=== PATIENT | female | born 1975 | race Caucasian/White ===

== ENCOUNTER 2016-06-25 05:29 | Day surgery (SDC) | payer OTHER ==
[~2016-06-25] VITALS: Ht 170.2 cm; Wt 71.3 kg
[2016-06-25] VITALS (14 sets, daily range): BP systolic 101–123; BP diastolic 62–87; PULSE 50–107; RESP 9–20; O2SAT 91–100
[2016-06-25] MEDS: Lactated Ringer's 1,000 ML IV SCH ×2 (05:09→07:27)
[~2016-06-25 05:29] MED LIST: CETI10CA PO; HYDR-4003 PO; MEDR150D9 IM
[2016-06-25] MEDS ORDERED: fentaNYL-PF 50 mCg/mL 2 mL Inj ONE (05:30)
[2016-06-25] MEDS ORDERED: Dexamethasone 4 mg/mL Inj ONE (05:30)
[2016-06-25] MEDS ORDERED: Glycopyrrolate 0.2 MG/ML 1mL Inj ONE (05:30)
[2016-06-25] MEDS ORDERED: Succinylcholine Chloride 20 mg/mL 5 mL Inj ONE (05:30)
[2016-06-25] MEDS ORDERED: Propofol 10,000 mCg/mL 20 mL Inj ONE (05:30)
[2016-06-25] MEDS ORDERED: Ondansetron 2 mg/mL 2 mL Inj ONE (05:30)
[2016-06-25] MEDS ORDERED: EPHEDrine/NS 5 mg/mL 5 mL Syringe ONE (05:30)
[2016-06-25] MEDS ORDERED: Lidocaine PF 1% 30 mL Inj ONE (05:30)
[2016-06-25] MEDS ORDERED: Rocuronium 10 mg/mL 5 mL Inj ONE (05:30)
[2016-06-25] MEDS ORDERED: Neostigmine 1 mg/mL 10 mL Inj ONE (05:30)
[2016-06-25] MEDS ORDERED: CeFAZolin Inj 2 GM in IV Premix 1 EACH IV ONE (06:00)
[2016-06-25 07:13] LABS: Mean Corpuscular Hemoglobin 31.9 pg (27.0-35.0); Mean Corpuscular Volume 92.3 fL (81-100)
[2016-06-25] MEDS ORDERED: Bupivacaine-MPF 0.5% W/EPI 30 mL Inj INFILTRATE ONE (07:30)
[2016-06-25] MEDS ORDERED: Lactated Ringer's 500 ML IV PRN (07:56)
[2016-06-25] MEDS ORDERED: Lactated Ringer's 1,000 ML IV SCH (07:56)
--- NOTE | 2016-06-25 07:58 | PCM.HPANE ---
Patient Data Surgeon Admitting Provider: Attending Provider:Quincy Wong MD Primary Care Physician:Rafaela Vines Other Provider:Vivian Rangel Anesthesia Reason for Visit Leiomyoma Of Uterus Ht/WT & BMI Height (Feet): 5 Height (Inches): 7.00 Weight (Kilograms): 71.3 Body Mass Index 24.00 Allergies Coded Allergies: No Known Allergies (Unverified , 06/22/16) Past Anesthesia History Anesthesia History: Denies:: Anesthesia Reactions, Malignant Hyperthermia Diabetes History Hx Diabetes?: No MRSA MRSA: No Medications Home Meds Incl Beta Gabo: No Reported Medications Cetirizine HCl (Zyrtec)10 Mg [id number] Mg PO HS #30 CAPSULE Ref 0 06/22/16 Hydrocodone-Acetaminophen 5-325 mg 1 Each Tablet1 Tablet PO Q6H PRN For Pain Ref 0 06/22/16 Medroxyprogesterone Acetate (Depo-Provera)150 Mg/1 Ml [id number] Mg IM q 3 months 06/22/16 Last Time Dose Received Pt. rarely takes hydrocodone. She also takes lexapro and rarely xanax History History of ENT Problems?: Yes HEENT History: Positive for:: Sinus Problem (SEASONAL ALLERGIES) Denture Type: None Teeth Condition: Within Normal Limits Other HEENT Pertinent History: S/P HYPOPHARYNGEAL EXAM R/T STREP THROAT/ PERITONSILLAR ABCESS 2016 Hx of Heart Problems?: No Cardiovascular History: Denies:: Heart Murmur Hypertension Hx of Respiratory Problem?: Yes Respiratory History: Positive for:: Asthma Denies:: Use of C-PAP Machine (SNORES) Other History/Comment Tobacco use; 1/2 pack ppd Asthma well controlled Hx Neurologic Problems?: Yes Hx of GI Problems?: No Hx of Problems?: No Female Hx: Denies:: Currently Endometriosis Pelvic Inflammatory (+HPV) Problems with Breasts? Skin History: Denies:: History Skin Disorders? Pressure Ulcers Hx Musculoskeletal Problems?: No Hx of Psycho/Social Problems?: Yes Psycho Social History: Positive for:: Hx Depression Denies:: Anxiety Bipolar Disorder Suicide Attempt Hx Surgeries?: Yes (C/S,LEEP,LT OOPHORECTOMY,BTL,HYPOPHARYNGEAL EXAM) Hx Any Other Health Problems?: Yes Other History: Positive for:: Hospitalization (TAJ-TONSILLAR ABCESS) Denies:: Cancer Endocrine Disease Thyroid Disease History Blood Transfusions: Denies:: Blood Transfusions Hx Diabetes: No Hx Alcohol Use: YesHx Substance Use: No Smoking Status: Current Every Day Smoker Have You Smoked inLast 12 mo: YesApprox How Many Cigarettes/day: 1/ PPD X 16YRS Stop/Bang S-Snoring: Do You Snore Loudly: Yes T-Tired: feel tired, fatigued: Yes O-Obsered: Observed not breath: No P-Blood Pressure: treated: No B- Body Mass Index > 35 kg/m2: No A- Age over 50: No N- Neck Large Circumference: No G- Gender Male: No ARVIN Total Score: 2 Risk Assessment Category Category 1A: Patient has history of documented sleep apnea, and HAS NOT received any narcotic, sedative or anesthesia administration during this stay. Category 1B: Patient has history of documented sleep apnea, and HAS received any narcotic , sedative or anesthesia administration during this stay Category 2: Patient has SUSPECTED Obstructive Sleep Apnea, and HAS received any narcotic , sedative or anesthesia administration during this stay. Category 3: Patient has SUSPECTED Obstructive Sleep Apnea and HAS NOT received narcotic, sedative or anesthesia administration during this stay. Category 4: Outpatient in Procedural Areas with known sleep apnea or who screen positive for High Risk via the STOP/BANG questionnaire. Exam Exam Vital Signs Vital Signs Date Time Temp Pulse Resp B/P Pulse Ox O2 Delivery O2 Flow Rate FiO2 06/25/16 06:00 36.5 107 16 113/87 97 Room Air General Appearance: Alert, Oriented X3 HEENT/AIRWAY: MP 2, Neck Movement (FROM) Lungs: Clear to Auscultation, Clear to Percussion Heart: Exam Unremarkable, Regular Rate/Rhythm Meds/Labs/Diagnostics Admission Meds Current Medications Lactated Ringer's (Lr) 1,000 ml @ 120 mls/hr Q8H20M IV Last administered on t 05:09; Start 06/25/16 at 05:00; Stop 06/25/16 at 13:19 Plan Impression Patient chart reviewed, patient interviewed and anesthestic plan with risks, benefits, and alternatives discussed, and informed consent obtained. ASA Physical Status: ASA2 Mod Systemic Disease Anesthetic Plan: GA Bene/Risks/Altern/Consents: Yes HP Complete Prior to Induction: Yes Danial Garza MD June 25, 2016 07:10
[2016-06-25] MEDS ORDERED: EPHEDrine Sulfate 50 mg/mL Inj IVPUSH PRN (08:00)
[2016-06-25] MEDS ORDERED: Ondansetron 2 mg/mL 2 mL Inj IVPUSH PRN ×2 (08:00→10:15)
[2016-06-25] MEDS ORDERED: Labetalol 5 mg/mL 4 mL Inj IV PRN (08:00)
[2016-06-25] MEDS ORDERED: Phenylephrine 10,000 mCg/mL Inj IVPUSH PRN (08:00)
[2016-06-25] MEDS ORDERED: Atropine 0.4 mg/mL Inj IVPUSH PRN (08:00)
[2016-06-25] MEDS ORDERED: MetoCLOpramide 5 mg/mL 2 mL Inj IVPUSH PRN ×2 (08:00→10:15)
[2016-06-25] MEDS ORDERED: oxyCODONE-Acetamin 5-325 mg Tablet PO PRN (10:15)
--- NOTE | 2016-06-25 10:19 | PCM.DIMED ---
Discharge Instructions Date of Service June 25, 2016 Dates of Hospitalization Diet No restrictions Activity No restrictions Call your provider Fever or Chills, Shortness of breath, Bleeding, Chest pain, Vomitting, Excessive diarrhea, Weakness (unilateral) Patient Instructions Follow-up with PCP in: 2 weeks Quincy Wong MD June 25, 2016 10:19
[2016-06-25] MEDS: fentaNYL-PF 50 mCg/mL 2 mL Inj IVPUSH PRN ×3 (10:27→10:50)
[2016-06-25] MEDS: HYDROmorphone 1 mg/mL Inj IVPUSH PRN ×2 (11:08→11:19)
--- NOTE | 2016-06-25 12:10 | PCM.ANEP1 ---
Post Anesthesia PACU Phase 1 Assessment Vital Signs Vital Signs Date Time Temp Pulse Resp B/P Pulse Ox O2 Delivery O2 Flow Rate FiO2 06/25/16 11:40 36.4 50 10 102/63 96 Nasal Cannula 2 06/25/16 11:35 75 12 101/67 95 Nasal Cannula 2 06/25/16 11:25 77 10 101/65 91 Room Air 06/25/16 11:15 71 10 107/64 94 Room Air 06/25/16 11:00 70 9 108/69 99 Room Air 06/25/16 10:55 36.6 83 16 118/65 98 Nasal Cannula 2 06/25/16 10:45 68 20 109/70 97 Nasal Cannula 2 06/25/16 10:35 62 17 116/77 100 Nasal Cannula 4 06/25/16 10:30 64 13 109/69 100 Nasal Cannula 4 06/25/16 10:25 77 14 123/74 95 Nasal Cannula 4 06/25/16 10:15 91 15 102/70 96 Room Air 06/25/16 10:12 36.1 91 12 112/62 93 Room Air 06/25/16 06:00 36.5 107 16 113/87 97 Room Air Anesthetic Administered: GA Level of Alertness: Awake, talking BRONSON's with Equal Strength: Yes Pain: No Nausea or Vomiting: No CV Function and Hydration: Yes (normal) Airway Device: None Oxygen Delivery: Simple Mask Lungs: Clear to Auscultation, Clear to Percussion PACU Phase 2 Assessment Complications: No Follow up Care: No Patient Instructions Provided: Yes Danial Garza MD June 25, 2016 12:10
--- NOTE | 2016-06-26 07:03 | OP ---
[address] [address] OPERATIVE REPORT PATIENT: [address]ORETTA [address] : 1975 MR#: [id number] ADMIT: 06/25/2016 JOB ID: [id number] DATE OF SURGERY: 06/25/2016 PROCEDURE: Total laparoscopic hysterectomy with right salpingectomy. PREOPERATIVE DIAGNOSIS(ES): 1. Chronic pelvic pain. 2. Abnormal uterine bleeding. 3. Dysmenorrhea. POSTOPERATIVE DIAGNOSIS(ES): 1. Chronic pelvic pain. 2. Abnormal uterine bleeding. 3. Dysmenorrhea. SURGEON: Quincy Wong MD FRONT DESK TEAM MEMBER: Stephanie Almodovar MD. The assistance of Dr. Almodovar was necessary in this case to provide proper exposure, help with retraction, and manipulation of the tissue. ANESTHESIA: General. ESTIMATED BLOOD LOSS: 20 mL. ESTIMATED URINE OUTPUT: 150 mL. FLUIDS: 900 mL of lactated Ringer. COMPLICATIONS: None. FINDINGS: Normal appearance of the external genitalia, vagina, and cervix. The uterus is boggy, irregular, normal in size with pedunculated fibroid in the upper posterior aspect of the uterus about 2.5 to 3 cm in size. Absent left adnexa due to prior left salpingo-oophorectomy, normal appearance of the right ovary and fallopian tube. DESCRIPTION OF PROCEDURE: The patient was brought to the operating room where she underwent general anesthesia without difficulty. The patient received preoperative antibiotics. She was placed in the deep dorsal lithotomy position using Carmelo stirrups. She was prepped and draped in usual surgical fashion. Time-out was performed verifying correct patient and correct procedure. Pelvic examination was performed. The Schulz catheter was placed. The same speculum was placed into the vagina. The cervix was visualized and grasped with a tenaculum. The Sonora Leatherare uterine manipulator was placed. Attention was then directed to the patient's abdomen where a Veress needle was introduced through the umbilicus and CO2 gas was insufflated with appropriate pneumoperitoneum achieved. Local anesthetic, Marcaine was used. One 0.5 cm subumbilical incision was made with a scalpel. A 5 mm trocar was placed through the incision. The pelvis was reviewed with a 5 mm 30 degree scope with the findings mentioned above. Two additional skin incisions were made in the right and left lower quadrant 5 cm superior and medially from the anterior-superior iliac spine. Two 5 mm trocars were placed through the incisions. Using Thunderbeat instrument, the patient's right fallopian tube was through the mesosalpinx from the adnexa dissected at the corner of the uterus and removed from the abdomen. The specimen was sent to Pathology. Then, using Thunderbeat instrument, the patient's right tubo-ovarian and round ligaments were transected and ligated. Further dissection was provided along the anterior aspect of the broad ligament until the midportion of the anterior lower uterine segment was reached. The same was done posteriorly. The uterine artery was skeletonized, ligated in three different places, and transected. Attention was then directed to the contralateral side where the round ligament was transected with the Thunderbeat instrument. Anterior and posterior leaves of the broad ligament were dissected towards the lower uterine segment, and left uterine artery was skeletonized. In a similar fashion, it was ligated proximally and distally and transected in between. Blanching over the fundus of the uterus showed interruption of the blood supply to the specimen. With the Thunderbeat instrument, posterior dissection along the vaginal cuff was provided the cervix from the vagina. It was continued on the patient's right side and then anteriorly until a circumferential dissection was completed and the uterus and the cervix were from the vaginal cuff. The specimen was removed vaginally and inflated surgical glove was inserted into the vagina to maintain pneumoperitoneum. Using 2-0 V-Loc suture on CT1 needle, the vaginal cuff was reapproximated from patient's right to the left side. The uterosacral ligaments were attached to the vaginal cuff to provide good suspension. Good hemostasis was achieved. Several images were obtained. The pelvis was irrigated with normal saline. The abdomen was desufflated with the CO2 gas, and all the instruments and trocars were removed. The glove was removed from the vagina. The Schulz catheter was removed as well. Cystoscopy was performed verifying patency of both ureters and intact bladder mucosa. The bladder was then drained and the cystoscope was removed. The patient was repositioned back into the supine position. She tolerated the procedure well and was transferred to the recovery room in stable condition.
--- NOTE | 2016-06-28 15:28 | PATH ---
SURGICAL PATHOLOGY Attending Physician:Quincy Wong MD CASE STATUS: Signed Out PATIENT NAME: LORETTA STREET PID: [id number] : 1975 DATE COLLECTED:06/25/2016 17:07 SPECIMEN: 1: Fallopian Tube, Biopsy 2: Uterus +/- tubes/ovaries, except neoplastic, prolapse CLINICAL HISTORY: LEIOMYOMA OF UTERUS, ABNORMAL UTERINE BLEEDING DYSMENORRHEA 1. RIGHT FALLOPIAN TUBE 2. UTERUS FINAL DIAGNOSIS: 1.RIGHT FALLOPIAN TUBE: FALLOPIAN TUBE WITH BENIGN PARATUBAL CYST. 2.UTERUS: UTERUS (85 GRAMS) WITH INTRAMURAL LEIOMYOMA AND HEMANGIOMA. NO EVIDENCE OF MALIGNANCY. ICD10 N83.9 D25.1 GROSS DESCRIPTION: The specimens are received in formalin, labeled with the patient's name, and sublabeled as the following: (1) right fallopian tube; (2) uterus. (1) The specimen consists of a fimbriated fallopian tube (length-6.3 cm, diameter-0.5 cm). The serosa is fitzpatrick-pink smooth and shiny and contains a paratubal cyst (0.7 x 0.6 x 0.5 cm) containing clear yellow gelatinous material. The lumen is evans and unremarkable. No nodules, masses or lesions are identified. Section code: (1A) fallopian tube, serially sectioned, access representative; (1B) fimbria, bivalved, entirely submitted. (2) The specimen is consists of a uterus (85 g, 4.0 cm AP, 8.2 cm SI, 5.0 cm ML). The ovaries and fallopian tubes are absent. The cervix (2.2 cm AP, 2.5 cm ML) has a transverse os and patent endocervical canal. The endometrium (average thickness-0.1 cm) is evans-pink smooth and flat. The myometrium (thickness-1.8 cm) is evans-luu and contains a solid firm white whorled homogenous well-circumscribed nodule (2.0 x 2.0 x 1.8 cm). The posterior aspect contains a subserosal nodule (2.3 x 2.2 x 2.0 cm) with the same characteristics. The serosa is evans-luu smooth and shiny. Section code: (2A) anterior cervix; (2B) posterior cervix; (2C, 2D) anterior endomyometrium; (2E-2G) posterior endomyometrium. 06/26/16 JM MICRO DESCRIPTION: See diagnosis. ICD-9 CODES: CPT CODES: 1: 78728 2: 52759 Electronically Signed Out Leesa Zhang MD [facility] [address], [place] [address] Technical component performed at [facility], [address], [place], [address]
== END 2016-06-25 23:59 | disposition home or self-care (01) ==
LOC: SAS 05:29
PROVIDERS: ATTEND Legal Medicine
DX: D25.1 Intramural leiomyoma of uterus (principal); N83.8 Other noninflammatory disorders of ovary, fallopian tube and broad ligament; N93.9 Abnormal uterine and vaginal bleeding, unspecified; R10.2 Pelvic and perineal pain; N94.6 Dysmenorrhea, unspecified
CPT/HCPCS: 36415; 58571; 85027; J0131; J0330; J0690; J1100; J1170; J1885; J2175; J2250; J2405; J2710; J3010; J7120